=== PATIENT | male | born 1955 | race Caucasian/White ===

== ENCOUNTER 2017-06-02 09:39 | Emergency (ER) | payer MEDICARE, MEDICAID ==
[~2017-06-02] VITALS: Ht 180.3 cm; Wt 95.0 kg
[~2017-06-02 09:39] MED LIST: AMLO10TA6 PO; BACL10TA PO; DICL100G15 TOP; GLIM4TAB79 PO; HYDR-3965 PO; HYDR-565 PO; LISI40TA4 PO; MELO-82 PO; METF-316 PO; NORT25CA87 PO; OMEP-84 PO; OXYC15TA88 PO; PRAV20TA60 PO; SILV50CR31 TP; TERB250T35 PO; VARD20TA31 PO
[2017-06-02 09:55] VITALS: BP 138/99
[2017-06-02] MEDS ORDERED: mupirocin 2% ointment 22GM TP STA (10:50)
[2017-06-02] MEDS ORDERED: MUPI22OI30 TOP (10:54)
[2017-06-02] MEDS ORDERED: ONDA4TAB6 PO (10:54)
== END 2017-06-02 12:24 | disposition home or self-care (01) ==
LOC: ER 09:39
DX: S61.012D Laceration without foreign body of left thumb without damage to nail, subsequent encounter (principal); L08.89 Other specified local infections of the skin and subcutaneous tissue; R10.84 Generalized abdominal pain; R11.10 Vomiting, unspecified; I10 Essential (primary) hypertension; E11.9 Type 2 diabetes mellitus without complications; G89.29 Other chronic pain; Z79.84 Long term (current) use of oral hypoglycemic drugs; Z79.899 Other long term (current) drug therapy; W31.2XXD Contact with powered woodworking and forming machines, subsequent encounter
CPT/HCPCS: 29125; 99283; A6449

== ENCOUNTER 2019-11-09 05:27 | Day surgery (SDC) | payer MEDICARE, MEDICAID ==
[2019-11-02 15:03] LABS: BASOPHILS % (AUTO) 0.5 % (0-1); EOSINOPHILS # (AUTO) 0.2 X10'3 (0-0.9); EOSINOPHILS % (AUTO) 2.8 % (0-6); LYMPHOCYTES # (AUTO) 2.3 X10'3 (1.1-4.8); LYMPHOCYTES % (AUTO) 33.5 % (21-51); MEAN CORPUSCULAR HEMOGLOBIN 27.7 PG (27.0-31.0); MEAN CORPUSCULAR HGB CONC 33.3 g/dL (33.0-36.5); MEAN CORPUSCULAR VOLUME 83.2 FL (78-98); MONOCYTES # (AUTO) 0.4 X10'3 (0-0.9); MONOCYTES % (AUTO) 5.5 % (2-12); NEUTROPHILS % (AUTO) 57.7 % (42-75); PRE OP HEMATOCRIT 46.5 % (42.0-52.0); PRE OP HEMOGLOBIN 15.5 g/dL (14.0-17.9); PRE OP PLATELET COUNT 182 X10'3 (140-440); RED BLOOD COUNT 5.59 X10'6 (4.70-6.10); RED CELL DISTRIBUTION WIDTH 13.5 % (11.5-14.5)
[2019-11-02 15:17] LABS: ALBUMIN 4.2 G/DL (3.4-5.0); ALBUMIN/GLOBULIN RATIO 1.4 (1.1-1.5); ALKALINE PHOSPHATASE 102 IU/L (46-116); BLOOD UREA NITROGEN 9 MG/DL (7-18); BUN/CREATININE RATIO 14.3 (5.4-32.0); CALCIUM 9.5 MG/DL (8.5-10.1); CHLORIDE 108 MMOL/L (99-107); CREATININE 0.63 MG/DL (0.60-1.10); PRE OP ALT 34 U/L (30-65); PRE OP ANION GAP 9 (8-16); PRE OP AST 15 U/L (10-37); PRE OP BILIRUB, TOTAL 0.5 MG/DL (0.0-1.0); PRE OP GLUCOSE 148 MG/DL (70-104); PRE OP POTASSIUM 3.9 MMOL/L (3.4-5.1); PRE OP SODIUM 145 MMOL/L (135-145); TOTAL CARBON DIOXIDE 27.8 MMOL/L (24-32); TOTAL PROTEIN 7.3 G/DL (6.4-8.2); eGFR > 90 ML/MIN
[~2019-11-09] VITALS: Ht 180.3 cm; Wt 85.0 kg
[2019-11-09] VITALS (13 sets, daily range): BP systolic 122–161; BP diastolic 71–99
[~2019-11-09 05:27] MED LIST changes: +ACET-2971 PO; -BACL10TA PO; -DICL100G15 TOP; +DULA1.5P SUBCUT; +EMPA10TA PO; -GLIM4TAB79 PO; -HYDR-3965 PO; -HYDR-565 PO; -METF-316 PO; -NORT25CA87 PO; -OMEP-84 PO; +ONDA4TAB6 PO; -OXYC15TA88 PO; -SILV50CR31 TP; -TERB250T35 PO; +ringers solution, lacted 1,000 ML IV SCH
[2019-11-09] MEDS ORDERED: cefazolin/dext.iso 2gm/50ml 50 ML IV ONE (05:30)
[2019-11-09] MEDS ORDERED: famotidine 20mg tablet PO ONE (05:30)
[2019-11-09] MEDS ORDERED: LIDOcaine 1% (10mg/ml) 2ml vial ONE (06:08)
[2019-11-09] MEDS ORDERED: BUPIVAcaine/PF 2.5mg/ml (0.25%) 10ml vial ONE (06:41)
[2019-11-09] MEDS ORDERED: BUPIVAcaine/PF 2.5 mg/ml (0.25%) 30ml vial ONE (06:41)
[2019-11-09] MEDS ORDERED: LIDOcaine 1% 30ml preserv. free vial ONE (06:41)
[2019-11-09] MEDS ORDERED: BUPIVACAINE liposomal/PF 13.3 MG/ML vial IM ONE (06:41)
[2019-11-09] MEDS ORDERED: sevoflurane 250ml liquid IH ONE (07:31)
[2019-11-09] MEDS ORDERED: midazolam 2 mg/2 ml injection ONE (07:36)
[2019-11-09] MEDS ORDERED: fentaNYL /PF 50mcg/ml 5ml ampule ONE (07:36)
[2019-11-09] MEDS ORDERED: ringers solution, lacted 1,000 ML IV SCH (08:39)
[2019-11-09] MEDS ORDERED: HYDROmorphone inj. 0.5 MG/0.5 ML DISP.SYRIN IV PRN ×2 (08:40)
[2019-11-09] MEDS ORDERED: labetalol 20mg/4ml (5mg/ml) syringe IV PRN (08:40)
[2019-11-09] MEDS ORDERED: ondansetron/PF 4mg/2ml inj IV PRN (08:40)
[2019-11-09] MEDS ORDERED: morphine 4 MG/ML inj SYRINge IV PRN (08:40)
[2019-11-09] MEDS ORDERED: acetaminophen 1,000mg/100ml IV 100 ML IV PRN (08:40)
[2019-11-09] MEDS ORDERED: proCHLORperazine 10 MG/2 ml inj IV PRN (08:40)
[2019-11-09] MEDS ORDERED: meperidine/PF 25mg/ml syringe IV PRN (08:40)
[2019-11-09] MEDS ORDERED: morphine 2 MG/ML inj. syringe IV PRN (08:40)
[2019-11-09] MEDS ORDERED: hydrALAZINE 20mg/ml inj. IV PRN (08:40)
[2019-11-09] MEDS ORDERED: ketorolac trometh. 30mg/ml inj. IV ONE (08:40)
[2019-11-09] MEDS ORDERED: LIDOcaine 2% (20mg/ml) 5ml vial ONE (08:50)
[2019-11-09] MEDS ORDERED: propofol inj 20 ML IV ONE (08:50)
[2019-11-09] MEDS ORDERED: rocuronium 10mg/ml inj IV ONE (08:50)
[2019-11-09] MEDS ORDERED: ondansetron/PF 4mg/2ml inj ONE (08:51)
[2019-11-09] MEDS ORDERED: dexamethasone sod phosphate 4mg/ml inj. ONE (08:51)
[2019-11-09] MEDS ORDERED: glycopyrrolate 0.2mg/ml inj ONE (08:56)
[2019-11-09] MEDS ORDERED: neostigmine methylsulfate 1 MG/ML 10ml vial ONE (08:56)
--- NOTE | 2019-11-09 09:14 | NUR ---
Received from OR via BUD, accompanied by Anesthesiologist DR HARDING and report given by Anesthesiologist. PT VERY DROWSY, NO S/S OF DISTRESS/DISCOMFORT, VSS. ABDOMEN W/3 LAP SITES W/BANDAIDS CDI. Addendum: 11/09/19 at 0952 by Valerie Cadet RN Amended: Links added.
[2019-11-09] MEDS ORDERED: insulin regular, human U-100 3ml vial - multi-dose SQ ONE (09:15)
[2019-11-09] MEDS ORDERED: oxyCODONE/APAP 10/325mg tablet PO PRN (09:25)
--- NOTE | 2019-11-09 11:04 | NUR ---
PT UP AND ABLE TO AMBULATE, PAIN IMPROVED, NAUSEA SUBSIDED, D/C INSTRUCTIONS GIVEN AND GONE OVER W/PT WHO VERBALIZED UNDERSTANDING, PT D/CD TO HOME VIA W/C TO PRIVATE VEHICLE W/O INCIDENT. Addendum: 11/09/19 at 1117 by Valerie Cadet RN Amended: Links added.
== END 2019-11-09 11:04 | disposition home or self-care (01) ==
LOC: PAS 05:27
PROVIDERS: ATTEND Surgery
DX: K43.6 Other and unspecified ventral hernia with obstruction, without gangrene (principal); E11.9 Type 2 diabetes mellitus without complications; I10 Essential (primary) hypertension; E78.5 Hyperlipidemia, unspecified; G89.29 Other chronic pain; M48.00 Spinal stenosis, site unspecified; F12.90 Cannabis use, unspecified, uncomplicated; G47.33 Obstructive sleep apnea (adult) (pediatric); K21.9 Gastro-esophageal reflux disease without esophagitis; E11.40 Type 2 diabetes mellitus with diabetic neuropathy, unspecified; M19.90 Unspecified osteoarthritis, unspecified site; E66.9 Obesity, unspecified; Z68.27 Body mass index [BMI] 27.0-27.9, adult; Z79.899 Other long term (current) drug therapy; Z11.59 Encounter for screening for other viral diseases; Z87.891 Personal history of nicotine dependence; Z96.651 Presence of right artificial knee joint
CPT/HCPCS: 36415; 49653; 64488; 80053; 82948; 85025; C1781; C9290; J0131; J1100; J1170; J1885; J2001; J2250; J2270; J2405; J2704; J2710; J3010; J3490; J7120; U0003; A4215; A4618; J1815

== ENCOUNTER 2020-10-07 12:54 | Emergency (ER) | payer MEDICARE, MEDICAID ==
[~2020-10-07] VITALS: Ht 180.3 cm; Wt 84.1 kg
[~2020-10-07 12:54] MED LIST changes: +LISI40TA13 PO; -LISI40TA4 PO; -ringers solution, lacted 1,000 ML IV SCH
[2020-10-07 13:11] VITALS: BP 152/89
[2020-10-07] MEDS ORDERED: DICL100G15 TOP (13:34)
[2020-10-07] MEDS ORDERED: CYCL-1 PO (13:34)
[2020-10-07] MEDS ORDERED: HYDR-3965 PO (13:52)
[2020-10-07] MEDS ORDERED: NAPR-56 PO (13:53)
== END 2020-10-07 14:27 | disposition home or self-care (01) ==
LOC: ER 12:55
DX: M76.31 Iliotibial band syndrome, right leg (principal); G89.29 Other chronic pain; M54.41 Lumbago with sciatica, right side; I10 Essential (primary) hypertension; E11.9 Type 2 diabetes mellitus without complications; Z79.899 Other long term (current) drug therapy
CPT/HCPCS: 73502; 99283

== ENCOUNTER 2024-06-29 07:27 | Emergency (ER) | payer MEDICARE, MEDICAID ==
[~2024-06-29] VITALS: Ht 180.3 cm; Wt 91.7 kg
[~2024-06-29 07:27] MED LIST changes: +CYCL-1 PO; +DICL100G15 TOP
[2024-06-29 07:30] VITALS: BP 166/93; PULSE 62; RESP 18; TEMP 97.3; O2SAT 96
== END 2024-06-29 11:24 | disposition left against medical advice (07) ==
LOC: ER 07:28
DX: K08.89 Other specified disorders of teeth and supporting structures (principal); Z53.21 Procedure and treatment not carried out due to patient leaving prior to being seen by health care provider